=== PATIENT | male | born 1985 | race Caucasian/White ===

== ENCOUNTER → 2017-10-20 | Outpatient (CLI) | payer BC ==
[~2017-10-20] VITALS: Ht 165.1 cm; Wt 69.9 kg
[~2017-10-20] MED LIST: ADVIL200 MG PO; TEGRETOL-XR,CA100 MG PO; VITAMIN D-32000 UNI2 PO; ZYRTEC10 M3 PO
== END | disposition home or self-care (01) ==
LOC: AMB 10-13 10:15 → OPR 10-13 11:45 → AMB 08:59 → OPR 12:00 → AMB 12:00
DX: D12.4 Benign neoplasm of descending colon (principal); D12.2 Benign neoplasm of ascending colon; K57.30 Diverticulosis of large intestine without perforation or abscess without bleeding; K29.90 Gastroduodenitis, unspecified, without bleeding; Z80.0 Family history of malignant neoplasm of digestive organs
CPT/HCPCS: 88305; 88342 TC; J2250